=== PATIENT | female | born 1970 | race Caucasian/White ===

== ENCOUNTER 2019-03-30 12:15 | Emergency (ER) | payer OTHER, SELFPAY ==
[2019-03-30 12:22] VITALS: BP 146/83; PULSE 106; RESP 20; TEMP 37.3; O2SAT 97
--- NOTE | 2019-03-30 12:34 | ED.UPPEXIN ---
HPI - Extremity Injury (Upper) General Chief Complaint: Upper Respiratory Infection Stated Complaint: coughchest congestion Time Seen by Provider: 03/30/19 12:36 Source: patient and RN notes reviewed History of Present Illness HPI narrative: Patient is a 48-year-old female that presents the urgent care with complaints of cough and chest congestion for 2 weeks. Patient states the cough is mostly dry and nonproductive. States that she has had some shortness of breath and wheezing with coughing fits. Patient states she does have a history of pneumonia as well as bronchitis. Patient has been using Tessalon and Tessalon without much relief. Patient also reports of low-grade fevers and chills. No other acute complaints. No acute distress noted. Patient read the plan of care. Related Data Home Medications Medication Instructions Recorded Confirmed ramipril 5 mg PO DAILY 03/30/19 03/30/19 Allergies Allergy/AdvReac Type Severity Reaction Status Date / Time codeine AdvReac Unknown Nausea and Verified 03/30/19 12:31 Vomiting Review of Systems Review of Systems: Narrative: CONSTITUTIONAL: Reports of low-grade fever and chills EYES: Denies visual changes, redness, or discharge. ENT: Reports of sinus congestion and postnasal drainage CARDIOVASCULAR: Denies chest pain, palpitations, or edema. RESPIRATORY: Reports of dry nonproductive cough with intermittent dyspnea and wheezing GASTROINTESTINAL: Denies abdominal pain, nausea, vomiting, or diarrhea. GENITOURINARY: Denies dysuria or hematuria. SKIN: Denies rash or itching. MUSCULOSKELETAL: Denies back pain, joint pain, or myalgia. NEUROLOGIC: Reports of intermittent headaches All other systems reviewed are negative, except as documented in HPI. [facility] Family History Family History (Updated 09/18/15 @ 23:21 by DOCTOR UNKNOWN) Mother Patient's mother is in good health Father Patient's father is in good health Family history of diabetes mellitus in first degree relative Sibling Patient's brother is in good health Other Acute myocardial infarction Diabetes mellitus Family history of attention deficit hyperactivity disorder (ADHD) Family history of irritable bowel syndrome Hypertension Malignant neoplasm of prostate Social History Social History Smoking status: Never smoker Second hand tobacco smoke exposure: No Alcohol intake: never Comments At the time of my signature, I reviewed and agree with the nursing past medical, surgical, social, and family history. There is no relevant family history pertinent to the patient complaint. Exam Narrative: Exam Narrative: GENERAL: This is a well-nourished, well-developed patient, in no apparent distress. HEAD: normocephalic, atraumatic. Mild frontal sinus tenderness EYES: PERRL. Sclera clear/white. Vision is grossly intact. EARS: External ears normal, auditory canals clear and without drainage, TMs normal without perforation. Hearing grossly intact. NOSE: External nose normal with no obvious nasal discharge, nares without redness, no rhinorrhea. THROAT: Mucous membranes moist, posterior pharynx clear. Moderate postnasal drainage NECK: Neck supple CARDIOVASCULAR: Regular rate and rhythm without murmurs, gallops, or rubs. RESPIRATORY: Inspiratory and expiratory wheezes slightly diminished bibasilar SKIN: warm, intact with no suspicious lesions or rash, good texture and turgor. NEURO: awake, alert, and oriented to person, place and time. There were no obvious focal neurologic abnormalities. EXTREMITIES: No clubbing, cyanosis, or edema. Course Vital Signs Vital signs: Vital Signs Temperature 99.1 F 03/30/19 12:22 Pulse Rate 106 H 03/30/19 12:22 Respiratory Rate 03/30/19 12:22 Blood Pressure 146/83 H 03/30/19 12:22 Pulse Oximetry 97 03/30/19 12:22 Temperature 99.1 F 03/30/19 12:22 Pulse Rate 106 H 03/30/19 12:22 Respiratory Rate 20 03/30/19 12:22 Blood Pressure 146/83 H 020
== END 2019-03-30 12:55 | disposition home or self-care (01) ==
PROVIDERS: Emergency Provider Nurse Practitioner Family; PCP Family Medicine
DX: J40 Bronchitis, not specified as acute or chronic (principal); J32.9 Chronic sinusitis, unspecified; I10 Essential (primary) hypertension
CPT/HCPCS: 99213; G0463

== ENCOUNTER → 2021-07-06 13:40 | Outpatient (CLI) | payer OTHER, SELFPAY ==
--- NOTE | ~2021-07-06 | CT_ITS ---
EXAMINATION: CT abdomen pelvis w con DATE: 07/06/2021 14:32 INDICATION: Abdominal and pelvic swelling. Right flank pain. TECHNIQUE: Computed tomography (CT) of the abdomen and pelvis was performed with 100 cc Omnipaque 350 intravenous contrast. The dose-length product was 1095.94 mGy-cm. Automated exposure control and ite rative reconstruction technique were employed. COMPARISON: No prior studies for comparison. . FINDINGS: Lung bases are unremarkable. Heart size normal. No significant pleural or pericardial effus ion. There is a fat-containing periumbilical hernia. There is stranding within the contain fat. Fat n ecrosis cannot be excluded. Fatty infiltration of the liver. Gallbladder is present. The spleen, pancreas, adrenal glands and kid neys are unremarkable. No free air or free fluid. There are mildly enlarged ileocolic mesenteric lymp h nodes. No retroperitoneal lymphadenopathy. Nonobstructive bowel gas pattern. Normal appendix. No ab normal pelvic masses or fluid collections. Mild-moderate lumbar spondylosis. There is osteoarthritis of the hips. IMPRESSION: 1. Periumbilical fat-containing hernia with fatty stranding. Cannot exclude areas of fat necrosis. 2: Hepatic steatosis. 3: Mildly enlarged ileocolic lymph nodes, likely reactive. Reviewed, dictated and finalized at location A. IMPRESSION: 1. Periumbilical fat-containing hernia with fatty stranding. Cannot exclude are as of fat necrosis. 2: Hepatic steatosis. 3: Mildly enlarged ileocolic lymph nodes, likely reactive.
[2021-07-06 14:20] LABS: Estimated Glomerular Filt Rate > 60
== END ==
PROVIDERS: PCP Family Medicine; Visit Provider Physician Assistant
DX: R19.00 Intra-abdominal and pelvic swelling, mass and lump, unspecified site (principal); M47.816 Spondylosis without myelopathy or radiculopathy, lumbar region; K42.9 Umbilical hernia without obstruction or gangrene; K76.0 Fatty (change of) liver, not elsewhere classified; R59.1 Generalized enlarged lymph nodes; M16.0 Bilateral primary osteoarthritis of hip
CPT/HCPCS: 74177; Q9967

== ENCOUNTER 2022-01-07 15:13 | Emergency (ER) | payer OTHER, SELFPAY ==
[2022-01-07 15:17] VITALS: BP 156/104; PULSE 121; RESP 16; TEMP 36.2; O2SAT 99
--- NOTE | 2022-01-07 15:41 | ED.URI ---
HPI - URI/Sore Throat General Chief Complaint: Upper Respiratory Infection Stated Complaint: Chest congestion Time Seen by Provider: 01/07/22 15:24 Source: patient Mode of arrival: ambulatory Limitations: no limitations History of Present Illness HPI Narrative: Patient presents today with 4 day history of fever up to 102, nasal congestion, cough with occasional shortness of breath. She has been taking a cough suppressant and azithromycin prescribed by her PCP 2 days ago without much relief. She go home COVID-19 test that was negative. Denies any history of asthma or COPD. Related Data Home Medications Medication Instructions Recorded Confirmed sieiqmtb-zcr-oyud-FA-Ca carb-vit K 1 tablet PO DAILY 12/10/20 01/07/22 18 mg iron-400 mcg-500 mg tablet (One-A-Day Womens Formula) levocetirizine 5 mg tablet (Xyzal) 5 mg PO DAILY 06/28/21 01/07/22 ibuprofen 800 mg tablet See Rx Instructions .Route 01/03/22 01/07/22 .COMPLEX PRN Pain Allergies Allergy/AdvReac Type Severity Reaction Status Date / Time codeine AdvReac Unknown Nausea and Verified 01/07/22 15:33 Vomiting Review of Systems Review of Systems: CONSTITUTIONAL: Denies body aches, chills, or sweats.+ fever EYES: Denies visual changes, redness, or discharge. ENT: Denies rhinorrhea, sore throat, or otalgia.+ congestion CARDIOVASCULAR: Denies chest pain, palpitations, or edema. RESPIRATORY: + cough, occasional shortness of breath. GASTROINTESTINAL: Denies abdominal pain, nausea, vomiting, or diarrhea. GENITOURINARY: Denies dysuria or hematuria. SKIN: Denies rash, itching, or wounds. MUSCULOSKELETAL: Denies back pain, joint pain, or myalgia. NEUROLOGIC: Denies headache, numbness, tingling, or weakness. PSYCH: Denies depression or anxiety. [facility] Past Medical History Medical History Colon cancer screening (~2019) cologuard negative Depression Diabetes HLD (hyperlipidemia) HTN (hypertension) with goal to be determined Vitamin D deficiency Surgical History Surgical History H/O sinus surgery H/O: hysterectomy Hx of tonsillectomy Family History Family History Mother , d/t COVID-19 pneumonia No problems noted. Father Family history of diabetes mellitus in first degree relative Heart disease Cerebrovascular accident Sibling Patient's brother is in good health Hypertension Other Acute myocardial infarction Diabetes mellitus Family history of attention deficit hyperactivity disorder (ADHD) Family history of irritable bowel syndrome Malignant neoplasm of prostate Social History Social History Smoking status: Never smoker Second hand tobacco smoke exposure: No Alcohol intake: never Alcohol use details: rare Substance use: never Substance use type: does not use Lack of Transportation: No Lack of Food: Never True Current Housing: I Have Housing Concerned About Future Housing: No Difficulty Paying Gas/Electric Bills: No Difficulty Paying for Meds: No Currently Unemployed: No Education: Bachelor's Degree Difficulty w/ Childcare or Family Care: No Gender identity (if verbalized by the patient): Female Comments At time of signature, I have reviewed and agree with nursing past medical, surgical, social and family history unless otherwise noted. Please see nursing chart for further information. There is no relevant family history pertinent to the presenting complaint Exam Narrative: GENERAL: Mildly ill-appearing, well-nourished, and in no acute distress. Tearful, states her son is in the hospital after MVC HEAD: Normocephalic, atraumatic. EYES: EOMI. No redness or drainage. Conjunctivae normal. ENT: Mucous membranes pink and moist. Na
== END 2022-01-07 15:50 | disposition home or self-care (01) ==
PROVIDERS: Emergency Provider Nurse Practitioner; PCP Family Medicine
DX: J10.1 Influenza due to other identified influenza virus with other respiratory manifestations (principal); E78.5 Hyperlipidemia, unspecified; I10 Essential (primary) hypertension; E11.9 Type 2 diabetes mellitus without complications; Z20.822 Contact with and (suspected) exposure to COVID-19
CPT/HCPCS: 87081; 87426; 87804; 87880; 99213; C9803; G0463

== ENCOUNTER → 2023-01-23 13:05 | Outpatient (CLI) | payer BC, SELFPAY ==
--- NOTE | ~2023-01-23 | XR_ITS ---
Clinical Indication: Cough PA and lateral views of the chest: Comparison: 11/04/2018 Findings: The lungs are clear, without evidence of focal consolidation or pleural effusion. Cardiome diastinal silhouette is within normal limits. Bones and soft tissues are unremarkable. Impression: Normal chest. Reviewed, dictated and finalized at [facility]. [employer] Impression: Normal chest.
== END ==
PROVIDERS: PCP Physician Assistant; Visit Provider Physician Assistant
DX: R05.9 Cough, unspecified (principal)
CPT/HCPCS: 71046

== ENCOUNTER 2023-08-23 13:14 | Outpatient (CLI) | payer BC, SELFPAY ==
--- NOTE | 2023-08-23 13:29 | ECG_ITS ---
Test Date: 2023-08-23 13:48:19 Measurements Intervals [place] Rate: 90 P: 16 [place]: 195 QRS: -7 QRSD: 94 T: 18 QT: 351 QTc: 431 Interpretive Statements SINUS RHYTHM LOW QRS VOLTAGE IN PRECORDIAL LEADS LEFT VENTRICULAR HYPERTROPHY BORDERLINE ECG No previous ECG available for comparison Electronically Signed On 08-23-2023 15:05:00 CDT by Los Reid D.O.
[2023-08-23 14:07] LABS: Anion Gap 7 mmol/L (4-12); Blood Urea Nitrogen 13 mg/dL (7-17); Calcium 9.7 mg/dL (8.4-10.2); Carbon Dioxide 27 mmol/L (22-30); Chloride 107 mmol/L (98-107); Estimated Glomerular Filt Rate > 60; Glucose 113 mg/dL (65-110); Potassium 4.7 mmol/L (3.4-5.0); Sodium 141 mmol/L (137-145)
== END 2023-08-23 13:15 | disposition home or self-care (01) ==
LOC: ANHSURGERY 13:16
PROVIDERS: Anesthesiology; PCP Family Medicine; Visit Provider Surgery
DX: Z01.818 Encounter for other preprocedural examination (principal); K43.2 Incisional hernia without obstruction or gangrene; E11.9 Type 2 diabetes mellitus without complications
CPT/HCPCS: 36415; 80048; 86850; 86900; 86901; 93005

== ENCOUNTER 2023-08-31 01:05 | Day surgery (SDC) | payer BC, SELFPAY ==
[2023-08-22 13:53] VITALS: BMI 37.0
--- NOTE | 2023-08-22 13:59 | PC.NURSE ---
Addendum entered by Maik Celaya RN 08/23/23 14:35: Stop all Vitamins and supplements 08-28-2023 Original Note: Report to the Outpatient Waiting Room, entrance under the green pavilion located off [facility], at time _1000 on date _[id number]_. Planned Procedure Time: _1200_. Time changes happen often and if your time is changed the preop area will call you the afternoon before. - You and your visitor will be asked to self-screen and do not enter if you have any COVID symptoms. - A mask is optional within the hospital at this time. Patients may have clear liquids (water, carbonated beverages, clear teas, apple juice) until 3 hours prior to surgery with a maximum of 20 ounces. - No food from midnight until time of surgery Take the following medications with a SIP of water the morning of surgery: ____Amlodipine DO NOT STOP ANY OF YOUR OTHER PRESCRIPTION MEDICATIONS PRIOR TO SURGERY ?EXCEPT THE FOLLOWING Medications to discontinue per physician Dea says she's stopping Ibuprofen until after surgery. Date to take last dose Please no make-up, nail citizen of [place], hairspray, perfume, deodorant, or body powder the day of surgery. No jewelry (including any body piercings) or valuables the day of surgery, leave them at home. Please take a shower or bath the night before, or the morning of, surgery with an antibacterial soap. Wear comfortable, loose fitting clothing. - Jewelry must be removed prior to entering the operating room. Rings and piercings that are not removed may be cut off. - The hospital will not accept responsibility for valuables. - Please leave all valuables, including medications, at home the day of surgery. If you are going home after surgery, a licensed peg driver must drive you home. - NO public transportation without another adult if you receive anesthesia. - We recommend that an adult stay with you for 24 hours following discharge. - We also recommend that you do not drive, make important decision, drink alcoholic beverages, or take any drugs that were not prescribed by your health care provider for at least 24 hours after your discharge time. Follow any additional instructions given to you from your surgeon. If you or anyone in your household have experienced Covid symptoms in the past week, please notify your surgeon or the nurse liaison at the phone number below for possible testing. Telephone instructions given to __Kelly___and asked if any additional questions and then verbalized understanding. Patient advised to call surgeon office or pre surgery nurse liaison [phone] if any additional questions.
[2023-08-31] VITALS (11 sets, daily range): BP systolic 127–145; BP diastolic 73–94; PULSE 78–100; RESP 14–16; TEMP 36.7; O2SAT 93–100; BMI 36.3
[2023-08-31 10:16] LABS: Glucose Point of Care 103 mg/dl (65-105)
--- NOTE | 2023-08-31 10:34 | PM.IMHP ---
H&P: HPI History of Present Illness Date/Time: 08/31/23 10:34 Chief Complaint: periumbilical ventral hernia Narrative: Dea is a 52 y/o female who presents to the office at the request of Swati Villar PA-C for evaluation of a umbilical hernia. Patient has noticed a bulge at her umbilicus for several years. CT abd/pelvis was done in 2021 and showed a periumbilical fat-containing hernia with fatty stranding. Cannot exclude areas of fat necrosis. She states the hernia has become more symptomatic recently. She describes the pain as soreness, more so when she bends over throughout the day. States the bulge is reducible. Denies any issues with bowel movements. Patient previous incision in the area from hysterectomy. Review of Systems Review of Systems: All systems reviewed & are unremarkable except as noted in HPI and below PMFSH Past Medical History Medical History Colon cancer screening (~2019) cologuard negative Depression Diabetes HLD (hyperlipidemia) HTN (hypertension) with goal to be determined Vitamin D deficiency Surgical History Surgical History H/O sinus surgery H/O: hysterectomy Hx of tonsillectomy Family History Family History Mother , d/t COVID-19 pneumonia No problems noted. Father Family history of diabetes mellitus in first degree relative Heart disease Cerebrovascular accident Sibling Patient's brother is in good health Hypertension Other Acute myocardial infarction Diabetes mellitus Family history of attention deficit hyperactivity disorder (ADHD) Family history of irritable bowel syndrome Malignant neoplasm of prostate Social History Social History Smoking status: Never smoker Second hand tobacco smoke exposure: No Alcohol intake: never Alcohol use details: rare Substance use: never Substance use type: does not use Lack of Transportation: No Lack of Food: Never True Current Housing: I Have Housing Concerned About Future Housing: No Difficulty Paying Gas/Electric Bills: No Difficulty Paying for Meds: No Currently Unemployed: No Education: Bachelor's Degree Difficulty w/ Childcare or Family Care: No Living arrangements: with family Occupation/Education: occupation Gender identity (if verbalized by the patient): Female Spiritual care concerns: No Agree to blood products: Yes Meds Home Medications and Allergies Home Medications Medication Instructions Recorded Confirmed Type akeabsls-aik-jqqs-FA-Ca carb-vit K 1 tablet PO DAILY 12/10/20 08/22/23 History 18 mg iron-400 mcg-500 mg tablet (One-A-Day Womens Formula) levocetirizine 5 mg tablet (Xyzal) 5 mg PO DAILY 06/28/21 08/22/23 History ergocalciferol (vitamin D2) 1,250 50,000 unit PO WEEKLY #5 caps 11/18/21 08/22/23 Rx mcg (50,000 unit) capsule (Vitamin D2) ibuprofen 800 mg tablet See Rx Instructions .Route 01/03/22 08/22/23 History .COMPLEX PRN Pain lidocaine HCl 2 % mucosal solution 1 applic mucous membrane QID PRN 06/27/22 08/22/23 Rx pain #100 mL albuterol sulfate 90 mcg/actuation 1 inh inhalation Q4H PRN shortness 01/09/23 08/22/23 Rx aerosol inhaler of breath or wheezing #8.5 grams amlodipine 5 mg tablet See Rx Instructions .Route 07/05/23 08/22/23 Rx .COMPLEX #90 tabs metformin 1,000 mg tablet 1,000 mg PO BID #180 tabs 07/24/23 08/22/23 Rx semaglutide 1 mg/dose (4 mg/3 mL) 1 mg (0.75 mL) subcut WEEKLY #3 mL 08/15/23 08/22/23 Rx subcutaneous pen injector (Ozempic) ramipril 2.5 mg capsule 2.5 mg PO DAILY #90 caps 08/22/23 08/22/23 Rx ramipril 5 mg capsule 5 mg PO DAILY #90 caps 08/22/23 08/22/23 Rx Allergies Allergy/AdvReac Type Severity Reaction Status Date / Time codeine AdvReac Unknown Nausea and Veri
--- NOTE | 2023-08-31 10:38 | WPDHPUPDATE1 ---
History and Physical Update Update Date/Time: 08/31/23 10:38 History and Physical has been reviewed, including an updated exam of the patient. There are NO changes in the patient's condition. Risks, benefits, and alternatives have been discussed and questions answered. Patient agrees to proceed with procedure.
[2023-08-31] MEDS: KETOROLAC 15 MG/ML VIAL (*BKC) IV PUSH (10:54)
[2023-08-31] MEDS: ACETAMINOPHEN 500 MG TABLET 1000 MG PO (10:54)
[2023-08-31] MEDS: LACTATED RINGERS 1,000 ML 30 ML IV CONT ×2 (11:15→13:51)
--- NOTE | 2023-08-31 11:43 | WPDANESEPPF ---
Anes - Initial Pre Proc Eval Procedure: Operation Date: 08/31/23 12:00 Proposed Procedures p Robotic Assisted Incisional Hernia Repair with Mesh - Tejal Bird MD Date/Time: 08/31/23 11:43 Surgeon: Tejal Bird MD Pre Op Diagnosis: incisional hernia Patient Data Age: 52 Gender: F Height: 1.6 m Weight: 93.1 kg Allergies Allergy/AdvReac Type Severity Reaction Status Date / Time codeine AdvReac Unknown Nausea and Verified 08/31/23 11:18 Vomiting Home Medications Medication Instructions Recorded Confirmed Type mricpylj-hsy-snvg-FA-Ca carb-vit K 1 tablet PO DAILY 12/10/20 08/22/23 History 18 mg iron-400 mcg-500 mg tablet (One-A-Day Womens Formula) levocetirizine 5 mg tablet (Xyzal) 5 mg PO DAILY 06/28/21 08/22/23 History ergocalciferol (vitamin D2) 1,250 50,000 unit PO WEEKLY #5 caps 11/18/21 08/22/23 Rx mcg (50,000 unit) capsule (Vitamin D2) ibuprofen 800 mg tablet See Rx Instructions .Route 01/03/22 08/31/23 History .COMPLEX PRN Pain lidocaine HCl 2 % mucosal solution 1 applic mucous membrane QID PRN 06/27/22 08/22/23 Rx pain #100 mL albuterol sulfate 90 mcg/actuation 1 inh inhalation Q4H PRN shortness 01/09/23 08/22/23 Rx aerosol inhaler of breath or wheezing #8.5 grams amlodipine 5 mg tablet See Rx Instructions .Route 07/05/23 08/31/23 Rx .COMPLEX #90 tabs metformin 1,000 mg tablet 1,000 mg PO BID #180 tabs 07/24/23 08/22/23 Rx semaglutide 1 mg/dose (4 mg/3 mL) 1 mg (0.75 mL) subcut WEEKLY #3 mL 08/15/23 08/31/23 Rx subcutaneous pen injector (Ozempic) ramipril 2.5 mg capsule 2.5 mg PO DAILY #90 caps 08/22/23 08/22/23 Rx ramipril 5 mg capsule 5 mg PO DAILY #90 caps 08/22/23 08/22/23 Rx Laboratory Tests 08/31/23 10:14 POC Capillary Glucose 103 mg/dl (65-105) Patient hx anesthesia problems: post op nausea/vomiting (scopolamine patch applied) Family hx anesthesia problems: none Results Review: All pre-operative results and documents have been reviewed as part of the pre-operative evaluation. [facility] Past Medical History Medical History Colon cancer screening (~2019) cologuard negative Depression Diabetes HLD (hyperlipidemia) HTN (hypertension) with goal to be determined Vitamin D deficiency Surgical History Surgical History H/O sinus surgery H/O: hysterectomy Hx of tonsillectomy Family History Family History Mother , d/t COVID-19 pneumonia No problems noted. Father Family history of diabetes mellitus in first degree relative Heart disease Cerebrovascular accident Sibling Patient's brother is in good health Hypertension Other Acute myocardial infarction Diabetes mellitus Family history of attention deficit hyperactivity disorder (ADHD) Family history of irritable bowel syndrome Malignant neoplasm of prostate Social History Social History Smoking status: Never smoker Second hand tobacco smoke exposure: No Alcohol intake: never Alcohol use details: rare Substance use: never Substance use type: does not use Lack of Transportation: No Lack of Food: Never True Current Housing: I Have Housing Concerned About Future Housing: No Difficulty Paying Gas/Electric Bills: No Difficulty Paying for Meds: No Currently Unemployed: No Education: Bachelor's Degree Difficulty w/ Childcare or Family Care: No Living arrangements: with family Occupation/Education: occupation Gender identity (if verbalized by the patient): Female Spiritual care concerns: No Agree to blood products: Yes Anes - Eval Final PreProcedure Day of Procedure 08/31/23 11:43 Patient weight: obese Heart: regular rate and rhythm Lungs: clear to auscultation Airway: [place]amp[place]
[2023-08-31] MEDS: SCOPOLAMINE 1 MG PATCH 1 PATCH TRANSDERM (11:56)
[2023-08-31] MEDS: ceFAZolin 2 GM/D5W 50 ML 2 GM/50 ML BAG IVPB (12:17)
[2023-08-31] MEDS: BUPIVACAINE/EPINEPHRINE 0.5% 50 ML VIAL 30 ML INFILTRATE (12:55)
--- NOTE | 2023-08-31 14:01 | W.PM.PROC2 ---
Procedure Note - Detailed Date of Procedure 08/31/23 Pre-op Diagnosis Incarcerated periumbilical incisional hernia Post-op Diagnosis Same Procedure Performed Robotic assisted repair incarcerated periumbilical incisional hernia with defect measuring approximately 4 cm Surgeon Tejal Bird MD Anesthesia General Indications 52-year-old female presenting to the office with a periumbilical incisional hernia from previous hysterectomy. In the office the defect measured approximately 4-5 cm. Findings Incarcerated periumbilical incisional hernia with noted incarcerated omentum and loop of small intestine, lower midline adhesions, defect measuring 4 cm Description of Procedure The patient was taken the operating room placed in the supine position. After adequate induction of general anesthesia, the patient was prepped and draped in normal sterile fashion. A time-out was then done to verify the patient's identity as well as the procedure being performed. I began by making a 8 mm incision in the left upper quadrant. Through this, a Veress needle was placed into the peritoneal cavity and CO2 gas was insufflated. After adequate pneumoperitoneum was achieved, a 8 mm trocar was placed through this incision. I then placed the laparoscope through this trocar site and under direct visualization I placed a 8 mm port in the left mid abdomen as well as an additional 8 mm port in the left lower abdomen. The robot was then docked to the 3 port sites. I then went to the robotic console. I began by identifying the hernia. A moderate-sized incarcerated periumbilical incisional hernia was noted. There was also noted to be some dense adhesions of omentum and small intestine to the lower abdominal. Using both blunt and sharp dissection, was able to take down these adhesions to the lower midline. This lysis of adhesions took approximately 30 minutes. I then was able to slowly reduce the incarcerated contents of this periumbilical incisional hernia. This was done again with both blunt and sharp dissection. There was a large amount of omentum and a loop of small intestine noted within the hernia. Once completely reduced, this left an approximately 4 cm defect. I then closed the approximately 4 cm defect with 0 strata fix suture. I then placed a 15 x [address] mesh into the abdominal cavity. The positional stitch was placed in the middle of the mesh and brought up centering the mesh over the defect. Once this was done, I used 2 O vicryl suture to suture the mesh to the abdominal wall. Once the mesh was sutured in, I was happy with our tension-free repair. The mesh was noted to have good overlap of the defect. At this point, the robot was undocked and all ports were removed. All port sites were then closed with 4 O Monocryl subcuticular suture. The patient tolerated the procedure well, is extubated in the operating room postoperative, and will be transferred to the recovery room in stable condition. Implants 15 x [address] mesh Estimated Blood Loss 10 Drains No Packing No Pathology None sent Complications No immediate complications Condition Stable Disposition PACU [facility] Billing Surgery - Charge Forward: Surgery Billing
[2023-08-31 14:51] LABS: Glucose Point of Care 137 mg/dl (65-105)
[2023-08-31] MEDS: traMADol HCL (*CRX) 50 MG TABLET PO (15:45)
[2023-08-31] MEDS: fentaNYL CITRATE INJ (*CRX) 100 MCG/2 ML VIAL 25 MCG IV PUSH ×2 (16:26→16:30)
== END 2023-08-31 17:19 | disposition home or self-care (01) ==
PROVIDERS: PCP Family Medicine; Visit Provider Surgery
PROC: (CPT 49594; principal; 2023-08-31 12:00)
DX: K43.0 Incisional hernia with obstruction, without gangrene (principal); K66.0 Peritoneal adhesions (postprocedural) (postinfection); I10 Essential (primary) hypertension; E78.5 Hyperlipidemia, unspecified; E11.9 Type 2 diabetes mellitus without complications; F32.A Depression, unspecified; E55.9 Vitamin D deficiency, unspecified; E66.9 Obesity, unspecified; Z68.36 Body mass index [BMI] 36.0-36.9, adult; Z79.1 Long term (current) use of non-steroidal anti-inflammatories (NSAID); Z79.51 Long term (current) use of inhaled steroids; Z79.84 Long term (current) use of oral hypoglycemic drugs; Z79.85 Long-term (current) use of injectable non-insulin antidiabetic drugs; Z98.890 Other specified postprocedural states; Z80.42 Family history of malignant neoplasm of prostate; Z82.49 Family history of ischemic heart disease and other diseases of the circulatory system
CPT/HCPCS: 49594; S2900; 82948; A9270; C1781; J0690; J1100; J1170; J1885; J2250; J2405; J2704; J3010; J7030; J7120